=== PATIENT | male | born 1975 | race Caucasian/White ===

== ENCOUNTER 2017-10-25 09:10 | Inpatient (IN) ==
[2017-10-25 10:30] LABS: Amphetamine Screen,Urine Negative ng/mL (Cutoff=1000); Barbiturate Screen,Urine Negative ng/mL (Cutoff=200); Benzodiazepines Screen,Urine Negative ng/mL (Cutoff=200); Cannabinoid Screen,Urine Negative ng/mL (Cutoff = 50); Cocaine Screen,Urine Negative ng/mL (Cutoff= 300); Opiate Screen,Urine Negative ng/mL (Cutoff=300); Phencyclidine Screen,Urine Negative ng/mL (Cutoff=25)
[2017-10-25 10:31] LABS: Bilirubin,Urine Small (Negative); Blood,Urine Negative (Negative); Clarity,Urine Clear (Clear); Color,Urine Dark Yellow (Yellow); Glucose,Urine (UA) Normal (Normal); Ketones,Urine Negative (Negative); Leukocyte Esterase,Urine Negative (Negative); Nitrite,Urine Negative (Negative); Protein,Urine Trace mg/dL (Neg-Trace); Specific Gravity,Urine 1.027 (1.010-1.025); Urobilinogen,Urine >=8.0 mg/dL (Normal)
[2017-10-25 10:34] LABS: Bacteria,Urine None Seen per hpf (None-Few); Hyaline Casts,Urine None Seen per lpf (None-Few); RBC,Urine 0-3 per hpf (0-3); Squamous Epithelial Cell,Urine None Seen per lpf (None-Few); WBC,Urine 0-3 per hpf (0-3)
[2017-10-25 10:55] LABS: Basophils % 0.4 %; Eosinophils # 0.1 K/mcL (0.0-0.6); Eosinophils % 0.5 %; Hemoglobin 15.5 g/dL (12.9-16.9); Immature Granulocytes % 0.3 % (0-4); Lymphocytes # 1.5 K/mcL (0.6-4.6); Lymphocytes % 15.9 %; Mean Corpuscular Hemoglobin 29.9 pg (28.0-33.3); Mean Corpuscular Volume 90.7 fL (83.0-100.0); Mean Platelet Volume 9.8 fL (9.4-12.4); Monocytes # 0.7 K/mcL (0.0-1.3); Monocytes % 7.6 %; Neutrophils # 7.1 K/mcL (1.6-8.9); Platelet Count 272 K/mcL (140-400); Red Blood Count 5.18 M/mcL (4.19-5.50); Segmented Neutrophils % 75.3 %
[2017-10-25 11:02] LABS: Albumin 4.4 g/dL (3.5-5.7); Bilirubin,Direct 0.6 mg/dL (0.0-0.2); Bilirubin,Indirect 2.4 mg/dL (0.0-1.2)
[2017-10-25 11:05] LABS: Calcium 9.1 mg/dL (8.6-10.3); Carbon Dioxide 27 mEq/L (23-29); Chloride 104 mEq/L (98-107); Potassium 3.5 mEq/L (3.5-5.1); Sodium 138 mEq/L (136-145)
[2017-10-25 11:08] LABS: Acetaminophen < 1.0 mcg/mL (10-30); Albumin/Globulin Ratio 1.5 (1.1-2.2); Ethanol < 10 mg/dL (0-10); Salicylate < 5.0 mg/dL (15.0-30.0); Total Protein 7.4 g/dL (6.4-8.9)
[2017-10-25 11:10] LABS: BUN/Creatinine Ratio 17 (6-26); Blood Urea Nitrogen 15 mg/dL (6-20); Glucose 116 mg/dL (70-105); Osmolality,Calculated 288 (280-300); eGFR For African Americans > 60 (> 60); eGFR For Non-African Americans > 60 (> 60)
[2017-10-25] MEDS ORDERED: *HR* LORazepam 1 MG TABLET PO ONE ×2 (11:12→15:56)
[2017-10-25 11:23] LABS: Thyroid Stimulating Hormone 1.308 mcIU/mL (0.340-5.600)
--- NOTE | 2017-10-25 11:24 | Emergency Department Note ---
Disposition Clinical Impression: Suicidal ideation, Homicidal ideation, Medical clearance for psychiatric admission Depression Qualifiers: Depression Type: unspecified Qualified Code(s): F32.9 - Major depressive disorder, single episode, unspecified Disposition: Admitted As Inpatient Psych HPI - General Chief Complaint: ED Psychiatric Symptoms Stated Complaint: SI Time Seen by Provider: 10/25/17 09:25 Source: patient Mode of arrival: private vehicle Limitations: no limitations Nursing Notes Reviewed: Yes Vital Signs Reviewed: Yes - History of Present Illness HPI Narrative: 42-year-old male no psychiatric history presents to the ER with a chief complaint of suicidal and homicidal ideation. Patient states he has had thoughts of hurting himself for roughly 1 year. He states he has been hearing voices telling him that he is worthless. Denies any prior suicide attempts. States he is also felt like hurting other people to hurt him or his . He also reports that he was arrested yesterday. He denies any alcohol or drug use. He was recently on Zoloft and changed to Effexor. No other complaints. Pt complaint: suicidal ideation Onset (ago): month(s) Duration: constant History of similar episodes: No Improves with: none Worsens with: none Context: new medication(s) Alleged intoxication: No Associated Psychiatric Symptoms: suicidal ideation, homicidal ideation, racing thoughts, auditory hallucinations, visual hallucinations Associated symptoms: Reports: denies other symptoms Traumatic symptoms: denies traumatic injury Treatments prior to arrival: none Self harm or harm to others: admits thoughts of self harm, has plan - Related Data Home Medications Medication Instructions Recorded Confirmed HYDROcodone/Acet 5/325 mg [[place] 1 - 2 tab PO HS PRN 10/25/17 10/25/17 5-325 mg] Losartan/HCTZ [Hyzaar 50-12.5 1 each PO DAILY 10/25/17 10/25/17 Tablet] Pantoprazole Sodium [Protonix] 40 mg PO DAILY 10/25/17 10/25/17 Sertraline [Zoloft] 100 mg PO DAILY 10/25/17 10/25/17 Venlafaxine HCl [Effexor Xr] 75 mg PO DAILY 10/25/17 10/25/17 traZODone [TraZODone] 25 mg PO BID PRN 10/25/17 10/25/17 Allergies Allergy/AdvReac Type Severity Reaction Status Date / Time No Known Allergies Allergy Verified 10/25/17 09:19 All systems ED: reviewed and negative except as stated. Psychiatric: Reports: anxiety, depression, suicidal thoughts, homicidal thoughts , auditory hallucinations, visual hallucinations Past Medical History - Past Medical History Attestation: Yes The following information was validated with the patient. Source: patient Medical history: Reports: hypertension, migraine Surgical history: Reports: no surgical history Psychiatric history: Reports: no psych history - Social History Smoking Status: Never smoker Smokeless Tobacco Status: No Alcohol use: Reports: occasionally Drug use: Reports: none Physical Exam - General Limitations: no limitations General appearance: alert, anxious - Head Head exam: atraumatic, normocephalic - Eye Eye exam: Present: normal appearance - ENT ENT exam: normal exam - Neck Neck exam: Present: normal inspection, full ROM - Chest Chest inspection: Present: normal inspection, symmetric chest wall rise - Respiratory Respiratory exam: Present: normal lung sounds bilaterally - Cardiovascular Cardiovascular exam: Present: regular rate, normal rhythm, normal heart sounds - Abdominal Exam Abdominal exam: Present: soft, Non-Tender. Absent: tenderness - Extremities Exam Extremities exam: Present: normal inspection, full ROM - Expanded Upper Extremity Exam Shoulder exam: Present: normal inspection, full ROM Arm exam: Present: normal inspection, full ROM Elbow exam: Present: normal inspection, full ROM Forearm/Wrist exam: Present: normal inspection, full ROM Hand exam: Present: normal inspection, full ROM - Expanded Lower Extremity Exam Hip/Pelvis exam: Present: normal inspection, full ROM Upper leg exam: Present: normal inspection, full ROM Knee exam: Present: normal inspection, full ROM Lower leg exam: Present: normal inspection, full ROM Ankle exam: Present: normal inspection, full ROM Foot/toe exam: Present: normal inspection, full ROM - Psychiatric Psychiatric exam: Present: anxious, homicidal ideation, suicidal ideation - Expanded Psychiatric Exam Expanded psych exam: Present: restlessness - Skin Skin exam: Present: warm, dry Course Course Narrative: Patient seen and examined. Vital signs reviewed. We will get screening labs for psychiatric evaluation. Patient is pink slipped for suicidal ideation. Vital Signs Temperature 98 F 10/25/17 09:15 Pulse Rate 96 10/25/17 09:15 Respiratory Rate 16 10/25/17 09:15 Blood Pressure 130/78 10/25/17 09:15 O2 Sat by Pulse Oximetry 93 10/25/17 09:15 Temperature 97.6 F 10/25/17 21:00 Pulse Rate 98 10/25/17 21:00 Respiratory Rate 18 10/25/17 21:00 Blood Pressure 157/97 10/25/17 21:00 O2 Sat by Pulse Oximetry 93 10/25/17 09:15 Oxygen Delivery Oxygen Delivery Room Air Psych - MDM Narrative Medical decision making narrative: 42-year-old male presents to the ER due to suicidal and homicidal ideation. He was seen by his primary care provider and referred here. Reports he has been anxious as well as recently arrested. He is medically cleared. Evaluated by the psychiatric service here and accepted for admission. - Lab Data Lab results reviewed: Yes I reviewed the patient's lab results. Result diagrams: 10/25/17 10:40 10/25/17 10:40 Lab Results 10/25/17 10/25/17 10/25/17 Range/Units 10:15 10:15 10:40 WBC 9.4 (4.3-11.1) K/mcL RBC 5.18 (4.19-5.50) M/mcL Hgb 15.5 (12.9-16.9) g/dL Hct 47.0 (37.5-50.1) % MCV 90.7 (83.0-100.0) fL MCH 29.9 (28.0-33.3) pg MCHC 33.0 (31.6-35.5) g/dL RDW 13.0 (11.5-14.5) % Plt Count 272 (140-400) K/mcL MPV 9.8 (9.4-12.4) fL Immature Gran % 0.3 (0-4) % Seg Neutrophils % 75.3 % Lymphocytes % 15.9 % Monocytes % 7.6 % Eosinophils % 0.5 % Basophils % 0.4 % Neutrophils # 7.1 (1.6-8.9) K/mcL Lymphocytes # 1.5 (0.6-4.6) K/mcL Monocytes # 0.7 (0.0-1.3) K/mcL Eosinophils # 0.1 (0.0-0.6) K/mcL Basophils # 0.0 (0.0-0.2) K/mcL Sodium (136-145) mEq/L Potassium (3.5-5.1) mEq/L Chloride (98-107) mEq/L Carbon Dioxide (23-29) mEq/L BUN (6-20) mg/dL Creatinine (0.70-1.30) mg/dL Est GFR ( Amer) (> 60) Est GFR (Non-Af Amer) (> 60) BUN/Creatinine Ratio (6-26) Glucose (70-105) mg/dL Calculated Osmolality (280-300) Calcium (8.6-10.3) mg/dL Total Bilirubin (0.3-1.0) mg/dL Direct Bilirubin (0.0-0.2) mg/dL Indirect Bilirubin (0.0-1.2) mg/dL AST (13-39) Units/L ALT (7-52) Units/L Alkaline Phosphatase (34-104) Units/L Serum Total Protein (6.4-8.9) g/dL Albumin (3.5-5.7) g/dL Globulin (2.4-3.5) g/dL Albumin/Globulin Ratio (1.1-2.2) TSH (0.340-5.600) mcIU/mL Urine Color Dark Yellow (Yellow) Urine Clarity Clear (Clear) Urine pH 7.0 (5.0-8.0) pH Units Ur Specific [place] 1.027 H (1.010-1.025) Urine Protein Trace (Neg-Trace) mg/dL Urine Glucose (UA) Normal (Normal) mg/dL Urine Ketones Negative (Negative) mg/dL Urine Blood Negative (Negative) Urine Nitrite Negative (Negative) Urine Bilirubin Small H (Negative) Urine Urobilinogen >=8.0 H (Normal) mg/dL Ur Leukocyte Esterase Negative (Negative) Urine Microscopic RBC 0-3 (0-3) per hpf Urine Microscopic WBC 0-3 (0-3) per hpf Ur Squamous Epith Cells None Seen (None-Few) per lpf Urine Bacteria None Seen (None-Few) per hpf Hyaline Casts None Seen (None-Few) per lpf Salicylates (15.0-30.0) mg/dL Urine Opiates Screen Negative (Dxrcgk=244) ng/mL Acetaminophen (10-30) mcg/mL Ur Barbiturates Screen Negative (Jibqab=339) ng/mL Ur Phencyclidine Scrn Negative (Cutoff=25) ng/mL Ur Amphetamines Screen Negative (Imvumw=1453) ng/mL U Benzodiazepines Scrn Negative (Fminwf=046) ng/mL Urine Cocaine Screen Negative (Cutoff= 300) ng/mL U Marijuana (THC) Screen Negative (Cutoff = 50) ng/mL Ethyl Alcohol (0-10) mg/dL 10/25/17 10/25/17 Range/Units 10:40 10:40 WBC (4.3-11.1) K/mcL RBC (4.19-5.50) M/mcL Hgb (12.9-16.9) g/dL Hct (37.5-50.1) % MCV (83.0-100.0) fL MCH (28.0-33.3) pg MCHC (31.6-35.5) g/dL RDW (11.5-14.5) % Plt Count (140-400) K/mcL MPV (9.4-12.4) fL Immature Gran % (0-4) % Seg Neutrophils % % Lymphocytes % % Monocytes % % Eosinophils % % Basophils % % Neutrophils # (1.6-8.9) K/mcL Lymphocytes # (0.6-4.6) K/mcL Monocytes # (0.0-1.3) K/mcL Eosinophils # (0.0-0.6) K/mcL Basophils # (0.0-0.2) K/mcL Sodium 138 (136-145) mEq/L Potassium 3.5 (3.5-5.1) mEq/L Chloride 104 (98-107) mEq/L Carbon Dioxide 27 (23-29) mEq/L BUN 15 (6-20) mg/dL Creatinine 0.87 (0.70-1.30) mg/dL Est GFR ( Amer) > 60 (> 60) Est GFR (Non-Af Amer) > 60 (> 60) BUN/Creatinine Ratio 17 (6-26) Glucose 116 H (70-105) mg/dL Calculated Osmolality 288 (280-300) Calcium 9.1 (8.6-10.3) mg/dL Total Bilirubin 3.0 H (0.3-1.0) mg/dL Direct Bilirubin 0.6 H (0.0-0.2) mg/dL Indirect Bilirubin 2.4 H (0.0-1.2) mg/dL AST 27 (13-39) Units/L ALT 37 (7-52) Units/L Alkaline Phosphatase 69 (34-104) Units/L Serum Total Protein 7.4 (6.4-8.9) g/dL Albumin 4.4 (3.5-5.7) g/dL Globulin 3.0 (2.4-3.5) g/dL Albumin/Globulin Ratio 1.5 (1.1-2.2) TSH 1.308 (0.340-5.600) mcIU/mL Urine Color (Yellow) Urine Clarity (Clear) Urine pH (5.0-8.0) pH Units Ur Specific [place] (1.010-1.025) Urine Protein (Neg-Trace) mg/dL Urine Glucose (UA) (Normal) mg/dL Urine Ketones (Negative) mg/dL Urine Blood (Negative) Urine Nitrite (Negative) Urine Bilirubin (Negative) Urine Urobilinogen (Normal) mg/dL Ur Leukocyte Esterase (Negative) Urine Microscopic RBC (0-3) per hpf Urine Microscopic WBC (0-3) per hpf Ur Squamous Epith Cells (None-Few) per lpf Urine Bacteria (None-Few) per hpf Hyaline Casts (None-Few) per lpf Salicylates < 5.0 L (15.0-30.0) mg/dL Urine Opiates Screen (Zmlbnc=304) ng/mL Acetaminophen < 1.0 L (10-30) mcg/mL Ur Barbiturates Screen (Cmfqvs=927) ng/mL Ur Phencyclidine Scrn (Cutoff=25) ng/mL Ur Amphetamines Screen (Iihcsy=6769) ng/mL U Benzodiazepines Scrn (Dofjfr=852) ng/mL Urine Cocaine Screen (Cutoff= 300) ng/mL U Marijuana (THC) Screen (Cutoff = 50) ng/mL Ethyl Alcohol < 10 (0-10) mg/dL Psychiatric Medical Clearance - Medical Clearance Checklist Medical History: Depression (Acute) Suicidal ideation (Acute) Homicidal ideation (Acute) Medical clearance for psychiatric admission (Acute) No Social History Section defined Current Vitals: Last Vital Signs Temp 97.6 F 10/25/17 21:00 Pulse 98 10/25/17 21:00 Resp 18 10/25/17 21:00 BP 157/97 10/25/17 21:00 Pulse Ox 93 10/25/17 09:15 Psychiatric Lab Panel: Drug Levels and Toxicity 10/25/17 10/25/17 10:15 10:40 Urine Opiates Screen Negative Acetaminophen < 1.0 L Ur Barbiturates Screen Negative Ur Phencyclidine Scrn Negative Ur Amphetamines Screen Negative U Benzodiazepines Scrn Negative Urine Cocaine Screen Negative U Marijuana (THC) Screen Negative Ethyl Alcohol < 10 Abnormal Labs: Abnormal lab results Glucose 116 mg/dL (70-105) H 10/25/17 10:40 Total Bilirubin 3.0 mg/dL (0.3-1.0) H 10/25/17 10:40 Direct Bilirubin 0.6 mg/dL (0.0-0.2) H 10/25/17 10:40 Indirect Bilirubin 2.4 mg/dL (0.0-1.2) H 10/25/17 10:40 Ur Specific [place] 1.027 (1.010-1.025) H 10/25/17 10:15 Urine Bilirubin Small (Negative) H 10/25/17 10:15 Urine Urobilinogen >=8.0 mg/dL (Normal) H 10/25/17 10:15 Salicylates < 5.0 mg/dL (15.0-30.0) L 10/25/17 10:40 Acetaminophen < 1.0 mcg/mL (10-30) L 10/25/17 10:40 Statement of Medical Clearance: I have evaluated the patient, reviewed diagnostic information, and certify that the patient's medical condition is sufficiently stable that transfer to the psychiatric unit does not pose a significant risk of deterioration. Attestation Statement - Attestation Attestation: I examined this patient and my medical decision-making was reviewed with the Resident Physician, Dr. Tello. I agree with the documented findings, disposition and treatment plan as described except to the extent set forth below. Patient is a 42-year-old white male with no prior history of depression or psychiatric illness who presents to the emergency department with his for suicidal ideation, auditory hallucinations and homicidal ideation. Patient states that for the past 2 months he has been gradually more and more depressed was placed on an SSRI by his family doctor and after 2 months noticed no improvement. Patient was then switched to Effexor which he stopped taking this morning as he does not feel this is helping. Patient's having thoughts of hurting his as well as himself and hears voices that told him he is worthless and encouraging him to commit suicide. Patient denies any attempts to harm himself prior to arrival today. I agree with patient's physical exam findings as documented. Vital signs are stable. Patient's remains resting comfortably at bedside. A pink slip was signed and placed on the chart for psychiatric evaluation. Pt's labs and urinalysis are unremarkable and is medically clear for further psychiatric evaluation. She was seen and evaluated by the psych nurse with one A and found to benefit from inpatient hospitalization. Patient will be admitted for further psychiatric assessment and management.
[2017-10-25] MEDS ORDERED: Haloperidol Lactate 5 MG/ML VIAL IM PRN (17:34)
[2017-10-25] MEDS ORDERED: *HR* LORazepam 2 MG/ML VIAL IM PRN (17:34)
[2017-10-25] MEDS ORDERED: Mag Hydrox/Al Hydrox/Simeth 30 ML UDC PO PRN (17:34)
[2017-10-25] MEDS ORDERED: MOM Conc 10 ML UD.LIQ PO PRN (17:34)
[2017-10-25] MEDS: *HR* LORazepam 1 MG TABLET PO PRN (19:45)
[2017-10-25] MEDS: hydrOXYzine pamoate 25 MG CAPSULE PO PRN (21:16)
[2017-10-26] MEDS: Losartan/HCTZ 50-12.5 TABLET PO SCH (08:22)
[2017-10-26] MEDS ORDERED: Venlafaxine XR (24 HR) 37.5 MG CAP.ER.24H PO SCH (09:00)
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
[2017-10-26] MEDS: *HR* LORazepam 1 MG TABLET PO PRN ×2 (16:19→22:05)
[2017-10-26] MEDS: hydrOXYzine pamoate 25 MG CAPSULE PO PRN (18:01)
[2017-10-27] MEDS: Losartan/HCTZ 50-12.5 TABLET PO SCH (08:55)
[2017-10-27] MEDS: *HR* LORazepam 1 MG TABLET PO PRN ×3 (09:33→20:45)
[2017-10-27] MEDS: Ibuprofen 400 MG TABLET PO PRN ×2 (09:33→20:44)
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
[2017-10-28] MEDS: Losartan/HCTZ 50-12.5 TABLET PO SCH (07:38)
--- NOTE | 2017-10-28 13:11 | Psychiatry Progress Note ---
Date of Encounter: 10/28/17 Time of Encounter: 12:57 Subjective Interval history: Patient seen and evaluated during rounds by a multidisciplinary treatment team. He was calm, cooperative and intermittently emotional and tearful. He reported a long history mood and depressive symptoms. Also reported h/o fear of abundant stemming from his traumatic and emotional upbringing. He mentioned he was recently started on medication (Sertralne, then Effexor) by his PCP after he finnaly decided to seek help because his symptoms were beginning to affect his marriage and was in fear of losing his . Patient was initially uncoopetative demanding to be discharge from the unit. He has been calmer and doing better since he agreed to start aking medications. He is currently on Seroquel 50mg BID and denied any noted side effect. He agreed to start taking Depakote and risk, benefit and side effects explained to patient to which he verbalized adequate understanding. He reported sleeping better with his medications and denied any problems with his appetite. Patient remains worried about losing his job and mentioned he was informed he no longer qualifies for FMLA. On review of symptoms he denied other mood or psychotic symptoms including AH/VH/SI/HI. Review of Systems Psychiatric: Reports: depression, mood swings Objective: Exam Patient orientation: Yes Person, Yes Time, Yes Place Level of alertness: Alert Patient appearance: Appropriate, Well Groomed, Obese Behavior: calm, cooperative Psychomotor activity: Normal Eye contact: Maintains Eye Contact Mood description: Depressed Affect description: labile, tearful Speech pattern: Normal rate, Normal rhythm, Normal tone, Appropriate Speech volume: Normal Thought process: Intact, Logical, Linear, Goal Oriented Thought content: Yes Intact Judgment: Fair Insight: Partial Results - Vital Signs Vital Signs: Temp Pulse Resp BP Pulse Ox 97.0 F L 90 16 124/84 93 10/28/17 08:40 10/28/17 08:40 10/28/17 08:40 10/28/17 08:40 10/25/17 09:15 Consult Discharge Plan - Plan Referrals: NONE,PCP [Primary Care Provider] -
[2017-10-28] MEDS: *HR* LORazepam 1 MG TABLET PO PRN (15:25)
[2017-10-28] MEDS: Divalproex (12 HR) 500 MG TABLET PO SCH (21:13)
[2017-10-29] MEDS: *HR* OxyCODONE/APAP 5/325 TABLET PO PRN ×2 (02:30→11:22)
[2017-10-29 02:38] LABS: Basophils % 0.4 %; Eosinophils # 0.2 K/mcL (0.0-0.6); Eosinophils % 1.8 %; Hematocrit 41.5 % (37.5-50.1); Immature Granulocytes % 0.6 % (0-4); Immature Platelets 3.5 % (1.1-6.1); Lymphocytes # 1.7 K/mcL (0.6-4.6); Lymphocytes % 17.4 %; Mean Corpuscular HGB Conc 32.8 g/dL (31.6-35.5); Mean Corpuscular Hemoglobin 29.7 pg (28.0-33.3); Mean Corpuscular Volume 90.6 fL (83.0-100.0); Mean Platelet Volume 9.9 fL (9.4-12.4); Monocytes # 0.9 K/mcL (0.0-1.3); Monocytes % 9.1 %; Neutrophils # 6.7 K/mcL (1.6-8.9); Platelet Count 229 K/mcL (140-400); Red Blood Count 4.58 M/mcL (4.19-5.50); Red Cell Distribution Width 12.9 % (11.5-14.5); Segmented Neutrophils % 70.7 %
[2017-10-29 02:39] LABS: Hemoglobin 13.6 g/dL (12.9-16.9)
[2017-10-29] MEDS ORDERED: cefTRIAXone 250 MG VIAL IM ONE (03:33)
--- NOTE | 2017-10-29 03:40 | Internal Medicine Consult Note ---
<Carson Schultz - Last Filed: 10/29/17 03:28> Date of Encounter: 10/29/17 Time of Encounter: 01:30 - Assessment and Plan (1) Epididymitis Current Visit: Yes Status: Acute Assessment and plan: US Scrotum negative for torsion Lactic acid and WBC within normal limits Pain control with percocet 5/325 Ordered Chlamydia and Gonorrhea DNA, Urine Ceftriaxone 250 mg IM once Doxycycline 100 mg PO BID x10 days We will sign off at this time, please contact us with any further concerns. Thank you. Internal Medicine - CN: HPI - Data of Consult Consult date: 10/29/17 Requesting Physician: Yasmany Chung DO - Consult Narrative Reason for consult: Testicular Pain History of present illness: Mr. Graham is a 42 year old male being treated for suicidal ideation who complains of left testicular pain that began within the last 24 hours. It has been getting progressively worse throughout the day. It radiates from the left testicle into the abdomen. He describes the pain as feeling "like I got kicked with a steel toed boot." The testicle is exquisitely tender to touch. He denies any trauma and states that he wasn't doing anything in particular when it started. He denies dysuria and hematuria. The patient denies ever having similar pain. He admits to mild nausea. He denies vomiting, fever, and chills. Past Med Surg Social Fam HX - Past Medical History Medical history: hypertension, migraine Psychiatric history: no psych history - Past Surgical History Surgical History: no surgical history - Social History Smoking Status: Never smoker Smokeless Tobacco Status: No Alcohol use: occasionally Drug use: none Review of systems: As per [facility] Internal Medicine - CN: Meds HYDROcodone/Acet 5/325 mg [[place] 5-325 mg] 1 - 2 tab PO HS PRN 10/25/17 [History ] Losartan/HCTZ [Hyzaar 50-12.5 Tablet] 1 each PO DAILY 10/25/17 [History] Pantoprazole Sodium [Protonix] 40 mg PO DAILY 10/25/17 [History] Sertraline [Zoloft] 100 mg PO DAILY 10/25/17 [History] Venlafaxine HCl [Effexor Xr] 75 mg PO DAILY 10/25/17 [History] traZODone [TraZODone] 25 mg PO BID PRN 10/25/17 [History] Doxycycline 100 mg PO BID 10 Days #20 capsule 10/29/17 [Rx] 3 Allergy/AdvReac Type Severity Reaction Status Date / Time No Known Allergies Allergy Verified 10/25/17 09:19 Internal Medicine - CN: Exam - Constitutional Vitals: Temp Pulse Resp BP Pulse Ox 97.6 F 96 18 110/87 93 10/29/17 01:55 10/29/17 01:55 10/29/17 01:55 10/29/17 01:55 10/25/17 09:15 General appearance IM: Present: cooperative, A&O X 3, pleasant, no acute distress, obese, answers questions appropriately - Respiratory Respiratory exam: Present: CTAB. Absent: accessory muscle use, respiratory distress - Cardiovascular Cardiovascular exam IM: Present: +S1, +S2, tachycardia Additional comments: Regular Rhythm - GI/Abdominal GI/Abdominal exam IM: Present: soft, tenderness (LLQ, radiating up from left testicle), no peritoneal signs - exam: Present: testicular tenderness Additional comments: Prehn sign positive - Expanded Exam Male exam: Present: erythema (mild left testicular) exam: cremasteric reflex absent: Left, Right, testicular swelling: Left (mild ), testicular tenderness: Left - Psychiatric Psychiatric exam: Present: normal affect, normal mood. Absent: agitated, anxious - Skin Skin exam IM: Present: dry, warm Internal Medicine - CN: Reslt - Labs CBC & Chem 7: 10/29/17 02:30 10/25/17 10:40 Labs: Short CBC 10/29/17 Range/Units 02:30 WBC 9.5 (4.3-11.1) K/mcL Hgb 13.6 D (12.9-16.9) g/dL Hct 41.5 (37.5-50.1) % Plt Count 229 (140-400) K/mcL Neutrophils # 6.7 (1.6-8.9) K/mcL - Impressions Impressions Scrotum Ultrasound 10/29/17 01:16 IMPRESSION: No evidence of testicular torsion or epididymo-orchitis. Normal testes. Trace simple appearing hydroceles. Tiny left spermatocele. D/ / Mp Bloom / Mp Bloom Interpreting Provider: Mp Bloom Consult Discharge Plan - Plan Referrals: NONE,PCP [Primary Care Provider] - Prescriptions: Doxycycline 100 mg PO BID 10 Days #20 capsule <Sharifa Vargas - Last Filed: 10/29/17 06:12> Date of Encounter: 10/29/17 Internal Medicine - CN: HPI - Data of Consult Requesting Physician: Yasmany Chung DO - Consult Narrative History of present illness: Mr. Graham is a 42 year old male Internal Medicine - CN: Exam - Constitutional Vitals: Temp Pulse Resp BP Pulse Ox 97.6 F 96 18 110/87 93 10/29/17 01:55 10/29/17 01:55 10/29/17 01:55 10/29/17 01:55 10/25/17 09:15 Internal Medicine - CN: Reslt - Labs CBC & Chem 7: 10/29/17 02:30 10/25/17 10:40 Labs: Short CBC 10/29/17 Range/Units 02:30 WBC 9.5 (4.3-11.1) K/mcL Hgb 13.6 D (12.9-16.9) g/dL Hct 41.5 (37.5-50.1) % Plt Count 229 (140-400) K/mcL Neutrophils # 6.7 (1.6-8.9) K/mcL - Impressions Impressions Scrotum Ultrasound 10/29/17 01:16 IMPRESSION: No evidence of testicular torsion or epididymo-orchitis. Normal testes. Trace simple appearing hydroceles. Tiny left spermatocele. D/ / Mp Bloom / Mp Bloom Interpreting Provider: Mp Bloom - Attending Attestation I examined this patient and my medical decision-making was reviewed with the Resident Physician Dr. Schultz. I agree with the documented findings, disposition and treatment plan as described except to the extent set forth below. This is a 42 y/o M with known PMH of HTN, Migraine headaches and mood disorder who is getting treatment in psych unit for his suicidal ideation now c/o Left testicular pain, swelling and erythema started since y/d afternoon. Pt is resting comfortably now. His pain is tolerable wit medication. Denied any fever / chills. Gen: A, A, O x 3 : Mild swollen Left testicle / scrotal sac, erythema ++, Tenderness ++ His scrotal pain alleviated with lifting the scrotum a/p 1. Acute epididymitis U/S of Scrotum r/o Testicular torsion His WBC, LA - WNL Will start him on PO Abx Doxy for 10 days course will check for STD's -- f/u with PCP 2. HTN stable with current meds Dispo: Since he is medically stable, will sign off on his care..Please call us if you have any questions. Thank you for allowing to participate in your patient 's medical care.
[2017-10-29] MEDS: Losartan/HCTZ 50-12.5 TABLET PO SCH (08:59)
[2017-10-29] MEDS: Divalproex (12 HR) 500 MG TABLET PO SCH (09:00)
[2017-10-29] MEDS ORDERED: Doxycycline 100 MG CAPSULE PO SCH (09:00)
[2017-10-29 10:58] VITALS: BP 111/78
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
== END 2017-10-29 14:50 | disposition home or self-care (01) | DRG 753 ==
LOC: EMEROO 09:10 → 1ANU 16:08 → SUATTDRO 16:08 → 1ANU 16:37
PROVIDERS: ADMIT Psychiatry & Neurology Psychiatry; ATTEND Psychiatry & Neurology Forensic Psychiatry

== ENCOUNTER 2017-11-26 06:26 | Observation (INO) ==
--- NOTE | 2017-11-26 07:07 | History & Physical Report ---
Date of Encounter: 11/26/17 Time of Encounter: 07:07 24 Hour HP Update - Instructions Instructions: If the History and Physical is less than 30 days old and was completed prior to A.M. admission and or procedure and has NOT been updated on calendar day of procedure please complete this update prior to performing procedure. - Update Patient reports changes in Medical Condition: No Changes in examination, assessment, or condition: No Changes in Medication: No Preop tests/diagnostics Reviewed: Yes Surgery Remains Indicated: Yes Consent for Planned Operative Procedure(s) Verified: Yes
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
[2017-11-26] MEDS ORDERED: *HR* Propofol 200 MG/20 ML VIAL IVP ONE ×2 (07:20→07:47)
[2017-11-26] MEDS ORDERED: *HR* FentaNYL (PF) 100 MCG/2 ML VIAL ONE ×2 (07:20→10:04)
[2017-11-26] MEDS ORDERED: *HR* Midazolam HCl 2 MG/2 ML VIAL ONE (07:20)
[2017-11-26] MEDS ORDERED: CeFAZolin Syr 3,000MG/30 ML 3,000 MG/30 ML SYRINGE IVPB ONE (07:21)
[2017-11-26] MEDS ORDERED: *HR* EPINEPHrine 1 MG/ML AMPUL ONE (07:21)
[2017-11-26] MEDS ORDERED: MORPHINE SUL Oral CONC 10 MG/0.5 ML ORAL.SYG SL PRN (07:26)
[2017-11-26] MEDS ORDERED: Ondansetron 4 MG/2 ML VIAL IVP ONE (07:26)
[2017-11-26] MEDS ORDERED: *HR* OxyCODONE Immed Rel 5 MG TABLET PO PRN (07:26)
[2017-11-26] MEDS ORDERED: Acetaminophen IV 1,000 MG/100 ML INFUS..BTL ONE (07:27)
[2017-11-26] MEDS ORDERED: Ringers Solution, Lactated 1,000 ML IVC SCH (07:30)
[2017-11-26] MEDS ORDERED: ROPIVACAINE HCL/PF 0.5% 30 ML VIAL ONE (07:33)
[2017-11-26] MEDS ORDERED: EPHEDrine 50 MG/ML VIAL ONE (07:45)
--- NOTE | 2017-11-26 07:50 | Anesthesia Procedures ---
Date of Encounter: 11/26/17 Time of Encounter: 07:43 Procedures: Anesthesia - Nerve Block Procedure Date: 11/26/17 Time: 07:43 Allergies/Adv Reactions: nka Pre-op Diagnosis: right shoulder rct Surgical Procedure: right shoulder Checklist: Correct Patient Identifier, Correct procedure, History checked Correct side: Right Blood Thinner: No Monitor Applied: EKG, BP, Pulse Oximetry Supplemental Oxygen via Nasal Cannula (L/min): 2 Sedation: Versed (mg): 2 Sedation: Fentanyl (mcg): 100 Indication: Post Op Analgesia Pre-op Neuro Deficits: No Block Type: Interscalene, Other (icb 5ml/ cp 5ml) Catheter placed: No Sterile Technique: Yes Ultrasound used: Yes Anatomy identified: Yes Visual spread of Local: Yes Neuro Stimulation: No Blood on Needle Aspiration: No Smooth Injection of Local: Yes Pain with Injection of Local: No Prep: Chlorhexadine Needle: 22 x 50 mm Stimuplex Local: Ropivacaine, Other (decadron 10mg) Volume (cc): 30 Number of Attempts: 1 Complications: None/effective block Vitals: Vital Signs/O2 Sat/Glucose, Most Recent Temp Pulse Resp BP Pulse Ox 97.9 F 90 16 103/68 93 11/26/17 07:24 11/26/17 07:45 11/26/17 07:45 11/26/17 07:45 11/26/17 07:45
--- NOTE | 2017-11-26 10:28 | Discharge Summary ---
Outpatient Proc Discharge Plan - Plan Additional Instructions: POST-OPERATIVE INSTRUCTIONS ARTHROSCOPIC SHOULDER REPAIR Your recovery after shoulder surgery can take 6-9 months to fully recover. It takes 16 weeks for the repair to fully heal, so it is very important to follow all precautions after surgery as directed. These instructions are intended to help you control swelling and pain, and to allow your shoulder and repaired tissues to heal. These instructions are a general guideline, because no patient or procedure is the same. If needed, your surgeon will give you further specific instructions. SLING You are required to wear your sling at all times (including sleeping) until your follow up appointment. This is necessary to protect your repair. You may remove it to work on your hand, wrist, and elbow exercises, for getting dressed , and for hygiene. Otherwise, it should remain on at all times. ICE It is recommended to ice your shoulder for 20 minutes per hour using an ice pack, Cryo Cuff if provided, or a bag of frozen peas. Ice can be especially helpful for the first several days after surgery. It can then be used as needed for pain and swelling. PAIN BLOCK/PAIN CATHETER The pain block/catheter is intended for pain relief and can last for up to 48 hours. During this time, you will not experience pain and will not be able to move your hand and fingers. It will give you the sensation of your arm being paralyzed. THIS IS TEMPORARY UNTIL THE BLOCK WEARS OFF. It is recommended that you start your pain medication even though you are getting pain relief from the block. It is more difficult to control the pain once the block wears off, then to keep a constant level of the pain medication in your system. MEDICATIONS You should resume all of your normal medications after shoulder surgery. If you are on blood thinners, these should be discussed with our team to decide on a date to resume them (typically the day after surgery). You will be given prescriptions for pain medications: o Fill the pain medications immediately and begin taking the medications before your nerve block wears off. You are encouraged to take the pain medications as directed on the prescription, and on a regular schedule for the first 3-4 days after surgery. o Do not let the pain get "ahead" of the pain medications since then it will be very difficult for you to get adequate pain control. o Even with the nerve block from surgery, it is recommended that you start on the pain medications after surgery to avoid the block wearing off without having pain medications in your system. o As the pain decreases, you may decrease the pain medication and switch to extra strength Tylenol if needed. o Avoid driving and consuming alcohol while taking pain medication. o Common side effects of pain medication are nausea, drowsiness, and constipation. Consider taking medication with food, and also consider using an [id number] stool softener. DRESSING Keep the surgical dressing clean and dry for the first 72 hours (3 days) after surgery. You may remove the dressing 3 days postop and apply Band-Aids over small incisions and you may tape gauze pads over the larger incisions. Please leave the Steri-Strips intact. They will fall off on their own. If you have drainage more than 5 days after surgery, please contact our office for advice. SHOWER You may shower and get the incisions wet 3 days after surgery, as long as there is no drainage from the incisions. Avoid letting the shower stream hit the incisions directly until the sutures are removed. DO NOT scrub incisions or soak under water (bathtub, swimming pool or hot tub etc.) Pat the shoulder dry and then re-apply the dressing SLEEPING You may find it more comfortable to sleep in a semi-reclined position (ie. recliner type chair or propped up on pillows) following shoulder surgery. You may return to sleeping in your bed whenever it feels comfortable to do so. EXERCISES You may come out of your sling 3-4 times/day to move your elbow, wrist, and hand and fingers. Remember no active motion of the shoulder (moving the arm without assistance from someone else) until follow up. We will make specific recommendations about physical therapy will be determined at your first postoperative appointment. FOLLOW UP APPOINTMENTS Your first follow up appointment is generally 10-14 days after surgery. Please refer to your preoperative packet for the date and time or contact the office after surgery to confirm this appointment. Please wait until after first follow up appointment for physical therapy instructions Wound care, pain management, and a review of your surgical procedure will be discussed at your first post-operative appointment Additional appointments are scheduled according to the type of surgery that you had and how you are progressing. PRECAUTIONS After anesthesia, rest for 24 hours. General anesthesia may cause a sore throat, jaw discomfort or muscle aches. These symptoms can last for one or two days. Do not drive, drink alcoholic beverages or make any important or legal decisions during this time. Avoid placing arm behind back (tucking in shirt, putting on belt), and do not lean on affected arm or use arm to push up from a seated or laying position. A good general rule is to keep your arm where you can see it. Keep your first few meals after surgery light and drink plenty of fluids, and some people are nauseas after surgery. Smoking increases your risk of infection and can delay healing times. If you smoke, you are encouraged to quit, cut back or at least quit smoking during the post-operative period. Pain medications are important for the first few days after surgery to treat postoperative pain. Addiction, tolerance, and side effects are a big concern. Decrease the pain medications as soon as you can. This is typically after the first few days. Most patients require narcotic pain medications only for the first few weeks after surgery (even large procedures). Prolonged use increases the risk of problems with these medications. NOTIFY THE OFFICE IMMEDIATELY IF YOU DEVELOP ANY OF THE FOLLOWING: Increased redness or swelling over the incision area Incision area is warm or hot to touch Incision has foul smelling drainage Relentless pain, nausea, vomiting, bleeding or drainage Severe calf pain or chest pain You develop a fever greater than 101.4 more than 48 hours after surgery If you having an emergency that requires immediate attention go to the nearest emergency room or call 911. Please contact the office with any other questions or concerns that you may have regarding your surgery. Home Medications: Indomethacin [Indomethacin] 50 mg PO BID 11/26/17 [History] LORazepam [Ativan] 0.5 mg PO TID PRN 11/26/17 [History] Losartan/HCTZ [Hyzaar 50-12.5 Tablet] 1 each PO DAILY 11/26/17 [History] Pantoprazole Sodium [Protonix] 40 mg PO DAILY 11/26/17 [History] Quetiapine Fumarate [Seroquel] 50 - 100 mg PO HS 11/26/17 [History]
--- NOTE | 2017-11-26 10:35 | Orthopedic Operative Note ---
Date of procedure: 11/26/17 Pre-op diagnosis: R shoulder massive supraspinatus tear, proximal biceps tear Post-op diagnosis: same Procedure: 1. Right shoulder arthroscopic superior capsular reconstruction with partial rotator cuff repair 2. Right shoulder arthroscopic extensive debridement with loose body removal 3. Right shoulder open subpectoral biceps tenodesis INDICATIONS: This is a 42 yo M with a long history of R shoulder pain, with exam and imaging findings consistent with a massive supraspinatus rotator cuff tear with retraction medial to the glenoid, and impingement. The patient had continued pain despite extensive non-operative management, including injections , therapy and anti-inflammatories, and so at this point elected for elective shoulder arthroscopy with glenohumeral debridement, rotator cuff repair versus SCR, and subacromial decompression and treatments of other injuries as indicated. The risks and benefits of the procedure were fully explained. Those risks include but are not limited to, infection, neurovascular injury, continued pain, arthritis, stiffness of the shoulder, further injury, need for further surgery, DVT, PE, loss of limb, and loss of life. The patient understood all of these risks and wished to proceed. Informed consent was obtained. OPERATIVE REPORT: The patient was identified in the holding area. The right upper extremity was marked, the patient was taken to the operating room and placed in the supine position. All bony prominences were well padded. The anesthesiologist performed successful general anesthetic for the remainder of the case. The patient's head, neck and airway were secured and monitored throughout the case by anesthesia. The patient was then placed in the beachchair position. Preoperative antibiotics were given prior to incision. A standard posterior portal was established. Diagnostic shoulder arthroscopy was then performed. The glenohumeral joint was intact with minimal cartilage wear. The anterior, inferior, and posterior labrum was intact but with significant fraying of the anterior and superior labrum. The biceps was torn nearly completely at its insertion on the labrum. An anterior portal was then established using an outside in technique. Shaver was introduced into the joint and the frayed aspect of the anterior and superior labrum was mechanically debrided. The biceps was removed from its insertion on the labrum for later biceps tenodesis. There was a loose body that was removed as well. The arthroscope was then placed into the anterior portal to better view the posterior structures and ensure no other injury. The rotator cuff showed a full -thickness tear of the supraspinatus retracted medial to the glenoid. The decision was made to perform the SCR due to the retraction of the glenoid. The rotator cuff was debrided and then the superior aspect of the glenoid was prepared removing the soft tissue with a shaver and then a agnes to stimulate bleeding on the medial aspect for graft healing. We then percutaneous placed 2 all suture fiber tack anchors on the superior glenoid taking care to ensure no penetration of the glenoid. The greater tuberosity was decorticated and the bony bed was prepared using a agnes. Viewing from posterior, a spinal needle was then used to establish an anterolateral portal just off the acromion for anchor insertion. 2 4.75 Bioswivelock anchors with fibertape were placed just lateral to the humeral head cartilage for the medial row. We then placed the arm in 20 degrees of abduction and 20 degrees of forward elevation and measured the distance between each anchor. We then placed a passport cannula laterally and sequentially pulled out sutures from all 4 anchors taking care to keep them . We then prepared our SCR graft outside the joint. We passed the lateral fiber tapes through the lateral aspect of the graft first and then passed the medial suture from the glenoid anchors to the medial aspect of graft. The medial sutures, one from each anchor, were then tied to enable brissa technique for passing the graft and the shoulder. The other limbs of the medial sutures were then pulled as we guided the graft into the shoulder through the passport cannula with a [place]. Once the graft was docked inside the joint where we will see good cortical contact on the medial glenoid and we are able to take slack out of the lateral aspect of the graft on the greater tuberosity. We tied the remaining suture limbs of the medial aspect of the graft from the anterior portal. We then performed fixation of our lateral row. 1 suture from each lateral anchor anchor was retrieved and placed in a self-tapping 4.75 bioswivelock laterally on the greater tuberosity for the anterior anchor of the lateral row. This process was then repeated for the posterior anchor of the lateral row. The graft was then evaluated. The repair moved as a unit with the arm and had good tension of the graft and allowed for good coverage of the tuberosity insertion. Finally we passed 2 sutures [id number] through the infraspinatus and the posterior aspect graft to fix the infraspinatus to the graft. These were tied using half hitch knots. Again the repair was evaluated and showed good coverage of the greater tuberosity and good movement of the graft with movement of the arm. The arthroscope was then removed from the joint. Portals were closed with 3-0 nylon. The head of the bed was then brought back down to approximately 45 degrees for the open subpectoral biceps tenodesis. An incision was made over the anterior humerus just inferior to the pectoralis muscle insertion. Hohmann was placed laterally and Cerda medially for retraction. The fascia over the pectoralis and biceps was split and the short head of the biceps was bluntly retracted, exposing the long head of the biceps and the bicipital groove. The long head of the biceps was scarred into the groove, and so rather than risk injury by forcefully pulling out the biceps, the long head tendon was tenodesed to the pec with #2 fiberwire. Incision was thoroughly irrigated and then closed with 2-0 and 3-0 strata fix. A sterile dressing was placed and the patient was placed in a sling. The patient was awoken and taken to the PACU in stable condition. There were no complications. Post op plan: The patient will follow the massive rotator cuff repair protocol Implants: Arthrex 4.75 swivelock anchors, arthroflex graft, all suture fibertak labral anchors Complications: none Anesthesia: GIANCARLO, regional Surgeon: Jayson Ledezma Was there an design assistant present: No Estimated blood loss (cc): 10 Condition: stable Disposition: PACU
[2017-11-26 14:08] VITALS: BP 111/77
--- NOTE | 2017-11-26 14:19 | Anesthesia Evaluation Post Op ---
Date of Encounter: 11/26/17 Time of Encounter: 14:18 - Vital Signs Vital Signs: Last Vital Signs Temp 98.0 F 11/26/17 11:18 Pulse 88 11/26/17 14:05 Resp 16 11/26/17 14:05 BP 111/77 11/26/17 14:05 Pulse Ox 88 11/26/17 14:05 - Lungs Lungs: Clear Ascult./Percussion - Airway Airway: Non-obstructed - Cardiovascular Regular Rate - Mental Status Mental Status: Alert & Oriented, Answers Appropriately - Pain Pain Scale: 2 - Nausea Vomiting Nausea Vomiting: Not Present - Hydration Hydration: Tolerates oral liquids - Discharge PostOp Status: Transfer Patient to floor (Patient requiring supplemental oxygen hours post-operatively; patient will be admitted for observation for post-op atelectasis from interscalene nerve block and general anesthesia; patient is otherwise doing well.)
[2017-11-26] MEDS ORDERED: *HR* HYDROcodone/Acet 5/325 mg TABLET PO PRN (17:07)
[2017-11-26] MEDS ORDERED: Naloxone 0.4 MG/ML INJ IVP PRN (17:07)
[2017-11-26] MEDS ORDERED: Acetaminophen 325 MG TABLET PO PRN (17:07)
== END 2017-11-26 19:04 | disposition home or self-care (01) | DRG 315 ==
LOC: SAMDAYPAV 06:26 → 3ANU 15:18 → INTOOBSV 16:33
PROVIDERS: ADMIT Orthopaedic Surgery Sports Medicine; ATTEND Orthopaedic Surgery Sports Medicine

== ENCOUNTER 2019-03-03 16:16 | Observation (INO) ==
[2019-03-03 16:43] LABS: Bilirubin,Urine Negative (Negative); Blood,Urine Negative (Negative); Clarity,Urine Clear (Clear); Color,Urine Yellow (Yellow); Glucose,Urine (UA) >=1000 mg/dL (Normal); Ketones,Urine Trace mg/dL (Negative); Leukocyte Esterase,Urine Negative (Negative); Nitrite,Urine Negative (Negative); Protein,Urine Negative (Neg-Trace); Specific Gravity,Urine 1.026 (1.010-1.025); Urobilinogen,Urine Normal (Normal)
[2019-03-03 17:04] LABS: Hematocrit 42.2 % (37.5-50.1); Mean Corpuscular HGB Conc 33.2 g/dL (31.6-35.5); Mean Corpuscular Hemoglobin 29.8 pg (28.0-33.3); Mean Corpuscular Volume 89.8 fL (83.0-100.0); Mean Platelet Volume 10.8 fL (9.4-12.4); Platelet Count 229 K/mcL (140-400); Red Cell Distribution Width 12.7 % (11.5-14.5); Segmented Neutrophils % 76.2 %
[2019-03-03 17:05] LABS: Basophils % 0.3 %; Eosinophils # 0.1 K/mcL (0.0-0.6); Eosinophils % 1.1 %; Immature Granulocytes % 0.4 % (0-4); Lymphocytes # 1.4 K/mcL (0.6-4.6); Lymphocytes % 15.1 %; Monocytes # 0.6 K/mcL (0.0-1.3); Monocytes % 6.9 %; Neutrophils # 6.9 K/mcL (1.6-8.9)
--- NOTE | 2019-03-03 17:23 | Emergency Department Note ---
Disposition Clinical Impression: ACS (acute coronary syndrome) Hyperglycemia due to type 2 diabetes mellitus Qualifiers: Diabetes mellitus manager intermediate insulin use: without alf use Qualified Code(s): E11.65 - Type 2 diabetes mellitus with hyperglycemia Disposition: Admitted As Inpatient Condition: Fair Referrals: NONE,PCP [Primary Care Provider] - Time of Disposition: 17:24 General Adult HPI - General Chief complaint: ED General Medical Stated complaint: HI BG Time Seen by Provider: 03/03/19 16:29 Source: patient, family Mode of arrival: ambulatory Limitations: no limitations Nursing Notes Reviewed: Yes Vital Signs Reviewed: Yes - History of Present Illness HPI Narrative: Attestation note: Patient was seen with the PGY 1 internal medicine resident: Dr. TIMOTHY ANDERSON, I was present for the significant portions of the performance and interpretation of procedures and EKGs. I have personally performed a face to face evaluation on this patient. I have reviewed and agree with history and physical examination patient management and disposition. 43-year-old male history of diabetes was on metformin took for several days it is a abdomen hurt like the symptoms surgically flushed the toilet. Revision polyuria or polydipsia been having occasional chest pain. Patient's HEART scores for. EKG shows normal sinus rhythm no acute ischemic changes patient is dry oral mucosa patient with 2 L normal saline screening labs including troponin chest x-ray patient be admitted for chest pain ACS a #2 medical noncompliance with type 2 diabetes #3 hyperglycemia. Patient getting 30 minutes critical care service this patient. Admission disposition pending Pain Scale: 5 - Related Data Home Medications Medication Instructions Recorded Confirmed Indomethacin 50 mg PO BID 11/26/17 11/26/17 LORazepam [Ativan] 0.5 mg PO TID PRN 11/26/17 11/26/17 Losartan/HCTZ [Hyzaar 50-12.5 1 each PO DAILY 11/26/17 11/26/17 Tablet] Pantoprazole Sodium [Protonix] 40 mg PO DAILY 11/26/17 11/26/17 Quetiapine Fumarate [Seroquel] 50 - 100 mg PO HS 11/26/17 11/26/17 Previous Rx's Medication Instructions Recorded Orphenadrine [Norflex] 100 mg PO BID #10 tablet.er 01/21/19 Allergies Allergy/AdvReac Type Severity Reaction Status Date / Time No Known Allergies Allergy Verified 01/21/19 15:53 Past Medical History - Past Medical History Medical history: Reports: diabetes, GERD, hyperlipidemia, hypertension, migraine, other Surgical history: Reports: no surgical history Psychiatric history: Reports: anxiety, bipolar, depression - Social History Smoking Status: Never smoker Smokeless Tobacco Status: No Alcohol use: Reports: none Drug use: Reports: none Course Vital Signs Temperature 97.5 F L 03/03/19 16:17 Pulse Rate 99 03/03/19 16:17 Respiratory Rate 14 03/03/19 16:17 Blood Pressure 134/86 03/03/19 16:17 O2 Sat by Pulse Oximetry 95 03/03/19 16:17 Temperature 97.5 F L 03/03/19 16:17 Pulse Rate 99 03/03/19 16:17 Respiratory Rate 14 03/03/19 16:17 Blood Pressure 134/86 03/03/19 16:17 O2 Sat by Pulse Oximetry 95 03/03/19 16:17 Oxygen Delivery Oxygen Delivery Room Air Medical Decision Making - Lab Data Result diagrams: 03/03/19 16:43 Lab Results 03/03/19 03/03/19 03/03/19 Range/Units 16:28 16:29 16:33 WBC (4.3-11.1) K/mcL RBC (4.19-5.50) M/mcL Hgb (12.9-16.9) g/dL Hct (37.5-50.1) % MCV (83.0-100.0) fL MCH (28.0-33.3) pg MCHC (31.6-35.5) g/dL RDW (11.5-14.5) % Plt Count (140-400) K/mcL MPV (9.4-12.4) fL Immature Gran % (0-4) % Seg Neutrophils % % Lymphocytes % % Monocytes % % Eosinophils % % Basophils % % Neutrophils # (1.6-8.9) K/mcL Lymphocytes # (0.6-4.6) K/mcL Monocytes # (0.0-1.3) K/mcL Eosinophils # (0.0-0.6) K/mcL Basophils # (0.0-0.2) K/mcL POC Glucose 432 H* 462 H* (70-99) mg/dL Beta-Hydroxybutyric Acd (0.02-0.27) mmol/L Urine Color Yellow (Yellow) Urine Clarity Clear (Clear) Urine pH 6.0 (5.0-8.0) pH Units Ur Specific [place] 1.026 H (1.010-1.025) Urine Protein Negative (Neg-Trace) mg/dL Urine Glucose (UA) >=1000 H (Normal) mg/dL Urine Ketones Trace H (Negative) mg/dL Urine Blood Negative (Negative) Urine Nitrite Negative (Negative) Urine Bilirubin Negative (Negative) Urine Urobilinogen Normal (Normal) mg/dL Ur Leukocyte Esterase Negative (Negative) Ur Culture Indicated? NO (NO) 03/03/19 03/03/19 Range/Units 16:43 16:43 WBC 9.0 (4.3-11.1) K/mcL RBC 4.70 (4.19-5.50) M/mcL Hgb 14.0 (12.9-16.9) g/dL Hct 42.2 (37.5-50.1) % MCV 89.8 (83.0-100.0) fL MCH 29.8 (28.0-33.3) pg MCHC 33.2 (31.6-35.5) g/dL RDW 12.7 (11.5-14.5) % Plt Count 229 (140-400) K/mcL MPV 10.8 (9.4-12.4) fL Immature Gran % 0.4 (0-4) % Seg Neutrophils % 76.2 % Lymphocytes % 15.1 % Monocytes % 6.9 % Eosinophils % 1.1 % Basophils % 0.3 % Neutrophils # 6.9 (1.6-8.9) K/mcL Lymphocytes # 1.4 (0.6-4.6) K/mcL Monocytes # 0.6 (0.0-1.3) K/mcL Eosinophils # 0.1 (0.0-0.6) K/mcL Basophils # 0.0 (0.0-0.2) K/mcL POC Glucose (70-99) mg/dL Beta-Hydroxybutyric Acd 0.30 H (0.02-0.27) mmol/L Urine Color (Yellow) Urine Clarity (Clear) Urine pH (5.0-8.0) pH Units Ur Specific [place] (1.010-1.025) Urine Protein (Neg-Trace) mg/dL Urine Glucose (UA) (Normal) mg/dL Urine Ketones (Negative) mg/dL Urine Blood (Negative) Urine Nitrite (Negative) Urine Bilirubin (Negative) Urine Urobilinogen (Normal) mg/dL Ur Leukocyte Esterase (Negative) Ur Culture Indicated? (NO)
[2019-03-03 17:27] LABS: BUN/Creatinine Ratio 13 (6-26); Blood Urea Nitrogen 11 mg/dL (6-20); Calcium 9.2 mg/dL (8.6-10.3); Carbon Dioxide 26 mEq/L (23-29); Chloride 96 mEq/L (98-107); Glucose 453 mg/dL (70-105); Osmolality,Calculated 291 (280-300); Sodium 131 mEq/L (136-145); Troponin I < 0.03 ng/mL (< 0.04); eGFR For African Americans > 60 (> 60); eGFR For Non-African Americans > 60 (> 60)
--- NOTE | 2019-03-03 17:29 | Emergency Department Note ---
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 Graham is a 43-year-old male who presented to the ED due to hyperglycemia. He reports that he was diagnosed with diabetes in July 2018 was started on metformin. He stopped the metformin 4 days after starting it due to abdominal pain. Reports in the past 4 weeks his glucose has been running above 500. He is also having blurry vision as well as paresthesia frequent urination ongoing for the past 1 month. Additionally reports chest pain at rest which worsens with exertion. The pain is reproducible and midsternal area. He is denying any radiation of the pain to back. He also does not follow any diet restrictions. Also complaining of shortness of breath at rest that worsens with exertion. Denies orthopnea or PND. Denies fever, chills, shortness of breath, nausea or emesis. Past medical history of bipolar disease, hypertension, GERD and diabetes mellitus type 2. Pain Scale: 5 - Related Data Home Medications Medication Instructions Recorded Confirmed Indomethacin 50 mg PO BID 11/26/17 11/26/17 LORazepam [Ativan] 0.5 mg PO TID PRN 11/26/17 11/26/17 Losartan/HCTZ [Hyzaar 50-12.5 1 each PO DAILY 11/26/17 11/26/17 Tablet] Pantoprazole Sodium [Protonix] 40 mg PO DAILY 11/26/17 11/26/17 Quetiapine Fumarate [Seroquel] 50 - 100 mg PO HS 11/26/17 11/26/17 Omeprazole 20 mg PO DAILY 03/03/19 03/03/19 Previous Rx's Medication Instructions Recorded Orphenadrine [Norflex] 100 mg PO BID #10 tablet.er 01/21/19 Allergies Allergy/AdvReac Type Severity Reaction Status Date / Time No Known Allergies Allergy Verified 01/21/19 15:53 Review of Systems: Sitting comfortably in bed. Constitutional: Denies: fever, chills, weakness Eyes: Denies: eye pain, eye discharge ENT ED: Denies: ear pain, congestion, dysphagia Cardiovascular: Reports: chest pain (At rest and with exertion), dyspnea on exertion. Denies: palpitations Respiratory: Denies: cough, dyspnea, wheezes Gastrointestinal: Denies: abdominal pain, nausea, vomiting Genitourinary: Denies: urgency, dysuria, frequency Musculoskeletal: Reports: back pain (chronic unchanged) Integumentary: Denies: rash, abrasion Neurological: Denies: headache, weakness, numbness Psychiatric: Reports: other (bipolar ). Denies: anxiety, depression Past Medical History - Past Medical History Medical history: Reports: diabetes, GERD, hyperlipidemia, hypertension, migraine, other Surgical history: Reports: no surgical history Psychiatric history: Reports: anxiety, bipolar, depression - Social History Smoking Status: Never smoker Smokeless Tobacco Status: No Alcohol use: Reports: none Drug use: Reports: none Physical Exam - General Limitations: no limitations General appearance: alert, in no apparent distress - Head Head exam: atraumatic, normocephalic - Eye Eye exam: Present: normal appearance, EOMI, scleral icterus. Absent: conjunctival injection - ENT ENT exam: normal exam, mucous membranes moist - Neck Neck exam: Present: normal inspection, full ROM, trachea midline - Chest Chest inspection: Present: normal inspection, symmetric chest wall rise - Respiratory Respiratory exam: Present: normal lung sounds bilaterally. Absent: respiratory distress, accessory muscle use - Cardiovascular Cardiovascular exam: Present: regular rate, normal rhythm, +S1, +S2 - Abdominal Exam Abdominal exam: Present: soft, normal bowel sounds. Absent: distention, guarding, rigidity - Extremities Exam Extremities exam: Present: normal inspection, full ROM. Absent: tenderness, pedal edema - Back Exam Back exam: Present: normal inspection, full ROM. Absent: tenderness - Neurological Exam Neurological exam: Present: alert, oriented X3 (Oriented to person place and time) - Psychiatric Psychiatric exam: Present: normal affect, normal mood - Skin Skin exam: Present: warm, dry, intact Course Vital Signs Temperature 97.5 F L 03/03/19 16:17 Pulse Rate 99 03/03/19 16:17 Respiratory Rate 14 03/03/19 16:17 Blood Pressure 134/86 03/03/19 16:17 O2 Sat by Pulse Oximetry 95 03/03/19 16:17 Temperature 97.5 F L 03/03/19 16:17 Pulse Rate 99 03/03/19 16:17 Respiratory Rate 14 03/03/19 16:17 Blood Pressure 134/86 03/03/19 16:17 O2 Sat by Pulse Oximetry 95 03/03/19 16:17 Oxygen Delivery Oxygen Delivery Room Air Medical Decision Making - MDM Narrative Medical decision making narrative: Mr. Graham is a 43-year-old male presented to ED complaining of elevated glucose of 500 for the past 4 weeks. He reports diagnosis of diabetes in July 2018, he stopped taking his metformin is currently not on any anti-glycemic. Blood glucose is 462 with anion gap of 9. Also complaining of chest pain ongoing for months. It is present at rest and worsens with exertion. Additionally complaining of shortness of breath at present and worsens with exertion. EKG shows sinus rhythm with troponins within normal limits. Spoke with Mr. Graham about admitting to the hospital for further ACS workup. He is agreeable. Spoke with Dr. Cruz who will admit the patient at this time. - Medical Records Medical records reviewed: Yes I reviewed the patient's medical records. - Lab Data Lab results reviewed: Yes I reviewed the patient's lab results. Result diagrams: 03/03/19 16:43 03/03/19 16:43 Lab Results 03/03/19 03/03/19 03/03/19 Range/Units 16:28 16:29 16:33 WBC (4.3-11.1) K/mcL RBC (4.19-5.50) M/mcL Hgb (12.9-16.9) g/dL Hct (37.5-50.1) % MCV (83.0-100.0) fL MCH (28.0-33.3) pg MCHC (31.6-35.5) g/dL RDW (11.5-14.5) % Plt Count (140-400) K/mcL MPV (9.4-12.4) fL Immature Gran % (0-4) % Seg Neutrophils % % Lymphocytes % % Monocytes % % Eosinophils % % Basophils % % Neutrophils # (1.6-8.9) K/mcL Lymphocytes # (0.6-4.6) K/mcL Monocytes # (0.0-1.3) K/mcL Eosinophils # (0.0-0.6) K/mcL Basophils # (0.0-0.2) K/mcL Sodium (136-145) mEq/L Potassium (3.5-5.1) mEq/L Chloride (98-107) mEq/L Carbon Dioxide (23-29) mEq/L BUN (6-20) mg/dL Creatinine (0.70-1.30) mg/dL Est GFR ( Amer) (> 60) Est GFR (Non-Af Amer) (> 60) BUN/Creatinine Ratio (6-26) Glucose (70-105) mg/dL POC Glucose 432 H* 462 H* (70-99) mg/dL Calculated Osmolality (280-300) Calcium (8.6-10.3) mg/dL Troponin I (< 0.04) ng/mL Beta-Hydroxybutyric Acd (0.02-0.27) mmol/L Urine Color Yellow (Yellow) Urine Clarity Clear (Clear) Urine pH 6.0 (5.0-8.0) pH Units Ur Specific [place] 1.026 H (1.010-1.025) Urine Protein Negative (Neg-Trace) mg/dL Urine Glucose (UA) >=1000 H (Normal) mg/dL Urine Ketones Trace H (Negative) mg/dL Urine Blood Negative (Negative) Urine Nitrite Negative (Negative) Urine Bilirubin Negative (Negative) Urine Urobilinogen Normal (Normal) mg/dL Ur Leukocyte Esterase Negative (Negative) Ur Culture Indicated? NO (NO) 03/03/19 03/03/19 03/03/19 Range/Units 16:43 16:43 16:43 WBC 9.0 (4.3-11.1) K/mcL RBC 4.70 (4.19-5.50) M/mcL Hgb 14.0 (12.9-16.9) g/dL Hct 42.2 (37.5-50.1) % MCV 89.8 (83.0-100.0) fL MCH 29.8 (28.0-33.3) pg MCHC 33.2 (31.6-35.5) g/dL RDW 12.7 (11.5-14.5) % Plt Count 229 (140-400) K/mcL MPV 10.8 (9.4-12.4) fL Immature Gran % 0.4 (0-4) % Seg Neutrophils % 76.2 % Lymphocytes % 15.1 % Monocytes % 6.9 % Eosinophils % 1.1 % Basophils % 0.3 % Neutrophils # 6.9 (1.6-8.9) K/mcL Lymphocytes # 1.4 (0.6-4.6) K/mcL Monocytes # 0.6 (0.0-1.3) K/mcL Eosinophils # 0.1 (0.0-0.6) K/mcL Basophils # 0.0 (0.0-0.2) K/mcL Sodium 131 L (136-145) mEq/L Potassium 4.0 (3.5-5.1) mEq/L Chloride 96 L (98-107) mEq/L Carbon Dioxide 26 (23-29) mEq/L BUN 11 (6-20) mg/dL Creatinine 0.88 (0.70-1.30) mg/dL Est GFR ( Amer) > 60 (> 60) Est GFR (Non-Af Amer) > 60 (> 60) BUN/Creatinine Ratio 13 (6-26) Glucose 453 H (70-105) mg/dL POC Glucose (70-99) mg/dL Calculated Osmolality 291 (280-300) Calcium 9.2 (8.6-10.3) mg/dL Troponin I < 0.03 (< 0.04) ng/mL Beta-Hydroxybutyric Acd 0.30 H (0.02-0.27) mmol/L Urine Color (Yellow) Urine Clarity (Clear) Urine pH (5.0-8.0) pH Units Ur Specific [place] (1.010-1.025) Urine Protein (Neg-Trace) mg/dL Urine Glucose (UA) (Normal) mg/dL Urine Ketones (Negative) mg/dL Urine Blood (Negative) Urine Nitrite (Negative) Urine Bilirubin (Negative) Urine Urobilinogen (Normal) mg/dL Ur Leukocyte Esterase (Negative) Ur Culture Indicated? (NO) - Radiology Data Radiology results reviewed: Yes I reviewed the patient's radiology results.
[2019-03-03] MEDS: 0.9 % Sodium Chloride 1,000 ML IVC SCH ×3 (17:41→19:49)
[2019-03-03] MEDS ORDERED: Insulin LISPRO 300 UNITS/3 ML VIAL SQ ONE (17:46)
[2019-03-03] MEDS ORDERED: *HR* LORazepam 0.5 MG TABLET PO PRN (17:50)
[2019-03-03] MEDS ORDERED: Naloxone 0.4 MG/ML INJ IVP PRN (17:50)
[2019-03-03] MEDS ORDERED: D5% in Water 1,000 ML IVC PRN (17:52)
[2019-03-03] MEDS ORDERED: Dextrose Gel 15 GM/37.5 ML TUBE PO PRN ×2 (17:52)
[2019-03-03] MEDS ORDERED: *HR* Dextrose 50 % in Water (Syg) 50 ML SYRINGE IVP PRN (17:52)
--- NOTE | 2019-03-03 17:56 | Internal Med History&Physical ---
Date of Encounter: 03/03/19 Time of Encounter: 18:09 Internal Medicine - H&P: HPI Chief complaint: High blood sugars Admitted From: Home Plans for Post Hospital Care: Home History of present illness: Mr. Graham is a 43 year old male with PMH of DM, Bipolar disorder, HTN who stopped taking all his meds voluntarily-presents with 1 moth hx of polyuria, polydipsia, increasing blood sugars, occasional dizziness and blurry vison. NO headaches or other neurologic symptoms He also complains of left sided chest pain, sometimes on exertion, radiates to his L arm. ROS is unremarkable He denies illicit drug use or smoking NO significant family hx of heart disease Work up in ER significant for hyperglycemia, otherwise unremarkable he will be placed on observation for hyperglycemia and chest pain r/o Plan discussed with patient and family at the bedside Past Med Surg Social Fam HX - Past Medical History Medical history: diabetes, GERD, hyperlipidemia, hypertension, migraine, other Additional medical history: migraines Psychiatric history: anxiety, bipolar, depression - Past Surgical History Surgical History: no surgical history Additional surgical history: abd surgery - Social History Smoking Status: Never smoker Smokeless Tobacco Status: No Alcohol use: none Drug use: none Internal Medicine - H&P: Meds Indomethacin 50 mg PO BID 11/26/17 [History] LORazepam [Ativan] 0.5 mg PO PRN PRN 11/26/17 [History] Losartan/HCTZ [Hyzaar 50-12.5 Tablet] 1 each PO DAILY 11/26/17 [History] Pantoprazole Sodium [Protonix] 40 mg PO DAILY 11/26/17 [History] Quetiapine Fumarate [Seroquel] 50 - 100 mg PO HS 11/26/17 [History] Orphenadrine [Norflex] 100 mg PO BID #10 tablet.er 01/21/19 [Rx] Omeprazole 20 mg PO DAILY 03/03/19 [History] Allergy/AdvReac Type Severity Reaction Status Date / Time No Known Allergies Allergy Verified 01/21/19 15:53 All Systems PM: A 10-system review of systems was performed and is negative for pertinent findings except as documented above in the HPI. - Constitutional Constitutional: as per HPI - EENT Eyes: as per HPI Ears: as per HPI Nose, mouth and throat: as per HPI - Cardiovascular Cardiovascular ROS IM: as per HPI - Respiratory Respiratory: as per HPI - Gastrointestinal Gastrointestinal: as per HPI - Musculoskeletal Musculoskeletal ROS IM: as per HPI - Integumentary Integumentary IM: as per HPI - Neurological Neurological ROS: as per HPI - Hematologic/Lymphatic Hematologic/Lymphatic: as per HPI - Constitutional Vitals: Temp Pulse Resp BP Pulse Ox 97.5 F L 104 14 113/78 95 03/03/19 17:20 03/03/19 17:34 03/03/19 17:20 03/03/19 17:34 03/03/19 17:20 General appearance: Present: A&O X 3, morbidly obese, pleasant, no acute distress Exam: ... - Head Head exam: Present: atraumatic, normocephalic - Eye Eye exam: Present: PERRL, conjuntiva pink, sclera anicteric Pupils: Present: PERRL - Neck Neck exam general surgery: Present: supple, trachea midline. Absent: lymphadenopathy - Respiratory Respiratory exam: Present: CTAB. Absent: accessory muscle use, rales, rhonchi, wheezes - Cardiovascular Cardiovascular exam: Present: RRR, +S1, +S2. Absent: diastolic murmur, gallop, rubs, systolic murmur - GI/Abdominal GI/Abdominal exam: Present: normal bowel sounds, soft, no peritoneal signs. Absent: distended, tenderness - Extremities Exam Extremities exam: Present: warm, radial pulses palpable and symmetrical. Absent: calf tenderness, cyanotic, pedal edema - Neurological Exam Neurological exam: Present: CN II-XII intact, oriented X3, no focal deficits. Absent: pronater drift, facial droop, speech deficit - Skin Skin exam: Present: dry, intact Internal Med - H&P Results - Labs CBC & Chem 7: 03/03/19 16:43 03/03/19 16:43 Labs: Short CBC 03/03/19 Range/Units 16:43 WBC 9.0 (4.3-11.1) K/mcL Hgb 14.0 (12.9-16.9) g/dL Hct 42.2 (37.5-50.1) % Plt Count 229 (140-400) K/mcL Neutrophils # 6.9 (1.6-8.9) K/mcL BMP 03/03/19 16:43 Sodium 131 L Potassium 4.0 Chloride 96 L Carbon Dioxide 26 BUN 11 Creatinine 0.88 Glucose 453 H Calcium 9.2 Cardiac Enzymes 03/03/19 Range/Units 16:43 Troponin I < 0.03 (< 0.04) ng/mL Urine 03/03/19 Range/Units 16:33 Urine Color Yellow (Yellow) Urine Clarity Clear (Clear) Urine pH 6.0 (5.0-8.0) pH Units Ur Specific [place] 1.026 H (1.010-1.025) Urine Protein Negative (Neg-Trace) mg/dL Urine Glucose (UA) >=1000 H (Normal) mg/dL - Impressions ITS Impressions Chest X-Ray 03/03/19 17:26 IMPRESSION: Negative chest. D/ / Asha Kennedy MD / Asha Kennedy MD Interpreting Provider: Asha Kennedy MD - Assessment and Plan (1) Chest pain Current Visit: Yes Status: Acute Assessment and plan: r/o ACS Initial trop negative EKG noted-no St segment changes Tropx X3 ECHO and stress test a.m Qualifiers: Chest pain type: unspecified Qualified Code(s): R07.9 - Chest pain, unspecified (2) Bipolar 1 disorder, depressed, severe Current Visit: Yes Status: Chronic Assessment and plan: Resume home meds when confirmed (3) Obesity Current Visit: Yes Status: Chronic Assessment and plan: lifestyle modification encouraged Qualifiers: Obesity type: unspecified obesity type Obesity classification: adult class 3 (BMI >= 40) Serious obesity comorbidity presence: unspecified whether serious comorbidity present Body mass index: BMI 40.0-44.9 Qualified Code(s): E66.01 - Morbid (severe) obesity due to excess calories; Z68.41 - Body mass index (BMI) 40.0-44.9, adult (4) Hyperglycemia due to type 2 diabetes mellitus Current Visit: Yes Status: Acute Assessment and plan: FS q6h for now Continue IVF SSI 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
[2019-03-03] MEDS ORDERED: Insulin LISPRO 300 UNITS/3 ML VIAL SQ SCH ×2 (18:00→21:00)
[2019-03-03 18:30] LABS: Estimated Average Glucose 275 mg/dl
[2019-03-03] MEDS ORDERED: Perflutren Lipid Microsphere 1.3 ML in 0.9 % Sodium Chloride 8.7 ML IVP ONE (21:22)
[2019-03-04] MEDS ORDERED: tiZANidine 4 MG TABLET PO ONE (00:03)
[2019-03-04] MEDS ORDERED: Pregabalin 25 MG CAPSULE PO SCH (04:15)
[2019-03-04] MEDS ORDERED: Regadenoson 0.4 MG/5 ML SYRINGE IVP ONE (05:40)
[2019-03-04] MEDS: 0.9 % Sodium Chloride 1,000 ML IVC SCH (05:52)
[2019-03-04] MEDS ORDERED: Acetaminophen 325 MG TABLET PO ONE (05:55)
[2019-03-04] MEDS: Insulin LISPRO 300 UNITS/3 ML VIAL SQ SCH ×2 (06:06→12:31)
[2019-03-04 07:40] LABS: Hemoglobin 12.9 g/dL (12.9-16.9); Mean Corpuscular HGB Conc 33.1 g/dL (31.6-35.5); Mean Corpuscular Hemoglobin 28.9 pg (28.0-33.3); Mean Corpuscular Volume 87.4 fL (83.0-100.0); Mean Platelet Volume 10.6 fL (9.4-12.4); Platelet Count 175 K/mcL (140-400); Red Blood Count 4.46 M/mcL (4.19-5.50); Red Cell Distribution Width 12.7 % (11.5-14.5); White Blood Count 6.8 K/mcL (4.3-11.1)
[2019-03-04 07:57] LABS: BUN/Creatinine Ratio 13 (6-26); Blood Urea Nitrogen 9 mg/dL (6-20); Calcium 8.4 mg/dL (8.6-10.3); Carbon Dioxide 25 mEq/L (23-29); Chloride 101 mEq/L (98-107); Glucose 343 mg/dL (70-105); Osmolality,Calculated 292 (280-300); Potassium 3.7 mEq/L (3.5-5.1); Sodium 135 mEq/L (136-145); eGFR For African Americans > 60 (> 60); eGFR For Non-African Americans > 60 (> 60)
[2019-03-04] MEDS ORDERED: Losartan/HCTZ 50-12.5 TABLET PO SCH (09:00)
--- NOTE | 2019-03-04 10:51 | Electrocardiograph Report ---
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
[2019-03-04 12:12] VITALS: BP 141/82
--- NOTE | 2019-03-04 12:54 | Discharge Summary ---
- NOTES TO OUTPATIENT PROVIDER Notes to Outpatient Provider: f/u with PCP within a week. Orders not resulted at time of discharge: Pending orders 03/03/19 18:13 NM charito perf SPECT multi [NM] Routine 03/05/19 04:00 Basic Metabolic Panel AM 0400 Complete Blood Count w/o Diff [HEME] AM 0400 Date of Encounter: 03/04/19 Time of Encounter: 12:49 - Discharge Diagnosis (1) Hyperglycemia due to type 2 diabetes mellitus Priority: Primary Status: Acute Qualifiers: Diabetes mellitus terminal gauger insulin use: without terminal gauger use Qualified Code(s): E11.65 - Type 2 diabetes mellitus with hyperglycemia (2) Bipolar 1 disorder, depressed, severe Priority: Secondary Status: Chronic (3) Chest pain Priority: Primary Status: Acute Qualifiers: Chest pain type: unspecified Qualified Code(s): R07.9 - Chest pain, unspecified (4) Morbid obesity with BMI of 40.0-44.9, adult Priority: Primary Status: Acute Hospital course: Mr. Graham is a 43 year old male with PMH of DM, Bipolar disorder, HTN who stopped taking all his meds voluntarily-presents with 1 moth hx of polyuria, polydipsia, increasing blood sugars, occasional dizziness and blurry vison. No headaches or other neurologic symptoms He also complains of left sided chest pain, sometimes on exertion, radiates to his L arm. Pt was admitted for further evaluation. Serial troponin was negative, ECG has no acute st-t changes. ECHO showed normal EF without obvious wall motion abnormalities. A 2-day stress test was ordered and pt finished the 1st part. However, he does not want to stay and wanted to go home. After discussed in detail with pt and family about the risk of leaving hospital without completing all necessary tests, he verbally understands and insists going home. We will discharge him, Insulin and hypoglycemia agent were prescribed. Diabetic education was provided. He was encouraged to establish a PCP and routinely f/u with him/her. Discharge discussed with: patient Time spent discussing smoking cessation with patient: more than 10 minutes - Time Spent with Patient Total time spent providing and/or coordinating discharge services: Time spent: Greater than 30 minutes - Discharge Medications Prescriptions: New Glimepiride [Amaryl] 1 mg PO DAILY #30 tablet Insulin NPH/REG 70/30 [HumuLIN 70/30 VIAL] 10 unit SQ BID #1 vial Continued Losartan/HCTZ [Hyzaar 50-12.5 Tablet] 1 each PO DAILY LORazepam [Ativan] 0.5 mg PO PRN PRN PRN Reason: Anxiety Omeprazole 20 mg PO DAILY Home Medications: LORazepam [Ativan] 0.5 mg PO PRN PRN 11/26/17 [History] Losartan/HCTZ [Hyzaar 50-12.5 Tablet] 1 each PO DAILY 11/26/17 [History] Omeprazole 20 mg PO DAILY 03/03/19 [History] Glimepiride [Amaryl] 1 mg PO DAILY #30 tablet 03/04/19 [Rx] Insulin NPH/REG 70/30 [HumuLIN 70/30 VIAL] 10 unit SQ BID #1 vial 03/04/19 [Rx] Allergies/Adverse Reactions: Allergy/AdvReac Type Severity Reaction Status Date / Time No Known Allergies Allergy Verified 01/21/19 15:53 Date of admission: 03/03/19 19:24 Primary care physician: PCP NONE Consults: 03/03/19 18:14 Consult to Diabetes Education [CONS] Routine Comment: Reason for Consult: Poor compliance 03/03/19 23:50 Consult to Rabbet Operator [CONS] Routine Reason for SW Consult: Patient is self-pay and needs financial assistance. Anticipated date of discharge: 03/04/19 - Constitutional Vitals: Temp Pulse Resp BP Pulse Ox 97.6 F 75 16 141/82 95 03/04/19 12:11 03/04/19 12:11 03/04/19 12:11 03/04/19 12:11 03/04/19 12:11 General appearance: Present: A&O X 3, morbidly obese, pleasant, no acute distress Exam: PHYSICAL EXAMINATION: GENERAL APPEARANCE: The patient is alert, oriented and in no acute distress. HEENT: Head is normocephalic. The sinuses are nontender. Pupils are equal and reactive. The nares are patent. Oropharynx clear without lesions. NECK: Supple without lymphadenopathy. HEART: Regular rate and rhythm. LUNGS: No crackles or wheezes are heard. ABDOMEN: Soft, nontender, nondistended with good bowel sounds heard. Inguinal area is normal. EXTREMITIES: Without cyanosis, clubbing or edema. NEUROLOGICAL: Gross nonfocal. SKIN: Warm and dry without any rash. - Patient Status Disposition: Home, Self-Care Condition: Fair Functional capacity at discharge: independent ambulation Overall status at discharge: patient is progressing back to baseline - Discharge Instructions Follow Up With: Robin Stevenson CNP [Partnered Physician] - 04/29/19 1:30 pm - Diet and Activity Activity: increase activity as tolerated Diet: diabetic diet, low fat, low cholesterol, low salt diet
== END 2019-03-04 14:40 | disposition home or self-care (01) ==
LOC: 3BNU 16:16 → EMEROOARM 16:16 → 3BNU 19:50
PROVIDERS: ADMIT Internal Medicine Nephrology; ATTEND Internal Medicine Nephrology